=== PATIENT | female | born 1950 | race Caucasian/White ===

== ENCOUNTER 2017-11-15 09:34 | Emergency (ER) | payer MEDICARE ==
[2017-11-15 09:50] VITALS: BP 148/71
--- NOTE | 2017-11-15 17:22 | UC ---
Dickson Keating Stephanie, scribed for Jv Fenton MD on 11/15/17 at 1016 . Throat Pain/Nasal Demarco HPI - HPI Summary HPI Summary: The pt is a 67 y/o F presenting to with c/o sinus congestion that began in September 2017. Symptoms include green nasal discharge and WALLACE. The pt has taken OTC medications such as Claritin and Mucinex with no improvement. - History of Current Complaint Chief Complaint: UCRespiratory Stated Complaint: SINUS CONGESTION Time Seen by Provider: 11/15/17 10:00 Hx Obtained From: Patient ?: No Onset/Duration: Gradual Onset, Lasting Weeks - 7, Still Present Pain Intensity: 0 Pain Scale Used: 0-10 Numeric Associated Signs & Symptoms: Positive: Nasal Discharge - Allergies/Home Medications Allergies/Adverse Reactions: Allergies Allergy/AdvReac Type Severity Reaction Status Date / Time ciprofloxacin Allergy Nausea Verified 11/15/17 09:51 Penicillins Allergy Nausea Verified 11/15/17 09:51 sulfamethoxazole Allergy Nausea Verified 11/15/17 09:51 [From Bactrim] trimethoprim [From Bactrim] Allergy Nausea Verified 11/15/17 09:51 latex Allergy Hives Uncoded 05/03/15 08:34 PMH/Surg Hx/FS Hx/Imm Hx Previously Healthy: Yes - The pt denies past medical hx. - Surgical History Surgical History: Yes Surgery Procedure, Year, and Place: Hysterectomy - Family History Known Family History: Positive: Diabetes - Social History Occupation: Employed Full-time Lives: With Family Alcohol Use: None Substance Use Type: None Smoking Status (MU): Never Smoked Tobacco Have You Smoked in the Last Year: No Review of Systems Constitutional: Negative Skin: Negative Eyes: Negative ENT: Nasal Discharge, Sinus Congestion Respiratory: Negative Cardiovascular: Negative Gastrointestinal: Negative Genitourinary: Negative Motor: Negative Neurovascular: Negative Musculoskeletal: Negative Neurological: Headache Psychological: Negative Is Patient Immunocompromised?: No All Other Systems Reviewed And Are Negative: Yes Physical Exam - Summary Physical Exam Summary: VITAL SIGNS: Reviewed. GENERAL: Patient is a well developed and nourished F who is lying comfortable in the stretcher. Patient is not in any acute respiratory distress. HEAD AND FACE: Normocephalic, post-nasal drip with yellow discharge EYES: PERRLA, EOMI x 2. EARS: Hearing grossly intact. MOUTH: Oropharynx within normal limits. NECK: Supple, trachea is midline, no adenopathy, no JVD, no carotid bruit. CHEST: Symmetric, no tenderness at palpation LUNGS: Clear to auscultation bilaterally. No wheezing or crackles. CVS: Regular rate and rhythm, S1 and S2 present, no murmurs or gallops appreciated. ABDOMEN: Soft, non-tender. Bowel sounds are normal. No abdominal abnormal pulsations. EXTREMITIES: Full ROM in all major joints, no edema, no cyanosis or clubbing. NEURO: Alert and oriented x 3. No acute neurological deficits. Speech is normal and follows commands. SKIN: Dry and warm Triage Information Reviewed: Yes Vital Signs: Initial Vital Signs Temp 98 F 11/15/17 09:47 Pulse 96 11/15/17 09:47 Resp 14 11/15/17 09:47 BP 148/71 11/15/17 09:47 Pulse Ox 100 11/15/17 09:47 Vital Signs Reviewed: Yes Throat Pain/Nasal Course/Dx - Course Course Of Treatment: The pt is a 67 y/o F presenting to with c/o sinus congestion that began in September 2017. Symptoms include green nasal discharge and WALLACE. The pt has taken OTC medications such as Claritin and Mucinex with no improvement. The pt is hemodynamically stable, alert and oriented x3. Patient was instructed to return to the urgent care or go to ER immediately if any of the symptoms return or worsens. Plan of care was discussed with the patient, and patient understands and agrees. All questions were answered to patient satisfaction. There were no further complaints or concerns.The patient was found to have increased BP in . The patient will follow up with PCP for better control of BP. - Differential Dx/Diagnosis Differential Diagnosis/HQI/PQRI: Laryngitis, Tonsillitis, URI Provider Diagnoses: acute sinusitis. elevated BP without dx of HTN Discharge - Sign-Out/Discharge Documenting (check all that apply): Discharge - Discharge Plan Condition: Stable Disposition: HOME Prescriptions: Azithromyxin DOMINIC (NF) [Z-Dominic (Zithromax) 250 mg tabs #6] 2 tab PO .TODAY, THEN 1 DAILY #6 tab Patient Education Materials: Sinusitis (ED) Referrals: Marilyn Johnson NP [Primary Care Provider] - Additional Instructions: FOLLOW UP WITH YOUR PRIMARY CARE PROVIDER WITHIN ONE WEEK FOR HIGH BLOOD PRESSURE NOTED TODAY. RETURN TO URGENT CARE FOR ANY WORSENING OR NEW SYMPTOMS. - Billing Disposition and Condition Condition: STABLE Disposition: HOME The documentation as recorded by the Dickson solano Stephanie accurately reflects the service I personally performed and the decisions made by me, Jv Fenton MD.
== END 2017-11-15 10:16 | disposition home or self-care (01) ==
LOC: UCEAST 09:34
DX: J01.90 Acute sinusitis, unspecified (principal); R03.0 Elevated blood-pressure reading, without diagnosis of hypertension; Z88.1 Allergy status to other antibiotic agents; Z88.0 Allergy status to penicillin; Z88.2 Allergy status to sulfonamides
CPT/HCPCS: 99212; G0463

== ENCOUNTER 2017-11-21 18:14 | Emergency (ER) | payer MEDICARE ==
[2017-11-21 18:28] VITALS: BP 139/73
--- NOTE | 2017-11-21 18:53 | UC ---
Ear Complaint HPI - HPI Summary HPI Summary: Finished Zithromax yesterday for a sinus infection. Here today complaining of earaches saying he feels like his fluid in her ears - History of Current Complaint Chief Complaint: UCEar Stated Complaint: EAR ACHE Time Seen by Provider: 11/21/17 18:44 Hx Obtained From: Patient ?: No Onset/Duration: Sudden Onset, Lasting Days - 1 Severity Initially: Mild Severity Currently: Mild Pain Intensity: 3 Pain Scale Used: 0-10 Numeric - Allergies/Home Medications Allergies/Adverse Reactions: Allergies Allergy/AdvReac Type Severity Reaction Status Date / Time ciprofloxacin Allergy Nausea Verified 11/21/17 18:22 Penicillins Allergy Nausea Verified 11/21/17 18:22 sulfamethoxazole Allergy Nausea Verified 11/21/17 18:22 [From Bactrim] trimethoprim [From Bactrim] Allergy Nausea Verified 11/21/17 18:22 latex Allergy Hives Uncoded 11/21/17 18:22 PMH/Surg Hx/FS Hx/Imm Hx Previously Healthy: Yes - Surgical History Surgical History: Yes Surgery Procedure, Year, and Place: Hysterectomy - Family History Known Family History: Positive: None, Diabetes - Social History Occupation: Employed Full-time Lives: With Family Alcohol Use: None Substance Use Type: None Smoking Status (MU): Never Smoked Tobacco Have You Smoked in the Last Year: No Review of Systems Constitutional: Negative Skin: Negative Eyes: Negative ENT: Ear Ache - Right worse than left Respiratory: Negative Cardiovascular: Negative Gastrointestinal: Negative Genitourinary: Negative Motor: Negative Neurovascular: Negative Musculoskeletal: Negative Neurological: Negative Psychological: Negative Is Patient Immunocompromised?: No All Other Systems Reviewed And Are Negative: Yes Physical Exam Triage Information Reviewed: Yes Appearance: Well-Appearing, No Pain Distress, Well-Nourished Vital Signs: Initial Vital Signs Temp 96.3 F 11/21/17 18:24 Pulse 86 11/21/17 18:24 Resp 20 11/21/17 18:24 BP 139/73 11/21/17 18:24 Pulse Ox 100 11/21/17 18:24 Vital Signs Reviewed: Yes Eye Exam: Normal Eyes: Positive: Conjunctiva Clear ENT Exam: Normal ENT: Positive: Normal ENT inspection, Hearing grossly normal, Pharynx normal, TMs normal, Uvula midline. Negative: Nasal congestion, Nasal drainage, Tonsillar swelling, Tonsillar exudate, Trismus, Muffled voice, Hoarse voice, Sinus tenderness Dental Exam: Normal Neck exam: Normal Neck: Positive: Supple, Nontender, No Lymphadenopathy Respiratory Exam: Normal Respiratory: Positive: Chest non-tender, Lungs clear, Normal breath sounds, No respiratory distress, No accessory muscle use Cardiovascular Exam: Normal Cardiovascular: Positive: RRR, No Murmur, Pulses Normal, Brisk Capillary Refill Musculoskeletal Exam: Normal Musculoskeletal: Positive: Strength Intact, ROM Intact, No Edema Neurological Exam: Normal Neurological: Positive: Alert, Muscle Tone Normal Psychological Exam: Normal Skin Exam: Normal Ear Complaint Course/Dx - Course Course Of Treatment: Mucinex D, Tylenol or ibuprofen, follow with primary care doctor as needed - Differential Dx/Diagnosis Provider Diagnoses: Resolving sinus and nasal congestion Discharge - Sign-Out/Discharge Documenting (check all that apply): Discharge - ELAINE - Discharge Plan Condition: Stable Disposition: HOME Patient Education Materials: Decongestant/Expectorant (By mouth), Earache (ED) Referrals: Marilyn Johnson NP [Primary Care Provider] - If Needed - Billing Disposition and Condition Condition: STABLE Disposition: HOME
== END 2017-11-21 19:05 | disposition home or self-care (01) ==
LOC: UCEAST 18:14
DX: R09.81 Nasal congestion (principal); Z88.0 Allergy status to penicillin; Z88.2 Allergy status to sulfonamides; Z88.1 Allergy status to other antibiotic agents; Z91.040 Latex allergy status
CPT/HCPCS: 99211; G0463

== ENCOUNTER 2019-05-18 07:44 | Emergency (ER) | payer MEDICARE ==
[2019-05-18 08:01] VITALS: BP 123/62
--- NOTE | 2019-05-18 09:00 | UC ---
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 HAS PAIN, BRUISING AND A LITTLE SWELLING. - History of Current Complaint Chief Complaint: UCLowerExtremity Stated Complaint: TOE INJURY Time Seen by Provider: 05/18/19 08:05 Hx Obtained From: Patient, Family/Molding Associate - Onset/Duration: Sudden Onset, Still Present Severity Initially: Moderate Severity Currently: Moderate Pain Intensity: 5 Pain Scale Used: 0-10 Numeric Aggravating Factor(s): Standing, Ambulation Alleviating Factor(s): Rest, Elevation Able to Bear Weight: Yes - Allergies/Home Medications Allergies/Adverse Reactions: Allergies Allergy/AdvReac Type Severity Reaction Status Date / Time ciprofloxacin Allergy Abdominal Verified 05/18/19 07:51 Pain Penicillins Allergy Hives Verified 05/18/19 07:51 sulfamethoxazole Allergy Hives Verified 05/18/19 07:51 [From Bactrim] trimethoprim [From Bactrim] Allergy Hives Verified 05/18/19 07:51 latex Allergy Hives Uncoded 05/18/19 07:51 PMH/Surg Hx/FS Hx/Imm Hx Previously Healthy: Yes - Surgical History Surgical History: Yes Surgery Procedure, Year, and Place: Hysterectomy - Family History Known Family History: Positive: Diabetes Negative: Cardiac Disease, Hypertension - Social History Alcohol Use: None Substance Use Type: None Smoking Status (MU): Never Smoked Tobacco Have You Smoked in the Last Year: No Review of Systems All Other Systems Reviewed And Are Negative: Yes Constitutional: Positive: Negative Skin: Positive: Bruising Respiratory: Positive: Negative Cardiovascular: Positive: Negative Gastrointestinal: Positive: Negative Musculoskeletal: Positive: Arthralgia, Decreased ROM, Edema Physical Exam Triage Information Reviewed: Yes Appearance: Well-Appearing, No Pain Distress, Well-Nourished Vital Signs: Initial Vital Signs Temp 98.3 F 05/18/19 07:53 Pulse 90 05/18/19 07:53 Resp 18 05/18/19 07:53 BP 123/62 05/18/19 07:53 Pulse Ox 99 05/18/19 07:53 Vital Signs Reviewed: Yes Eyes: Positive: Conjunctiva Clear ENT: Positive: Hearing grossly normal Neck: Positive: Supple Respiratory: Positive: No respiratory distress, No accessory muscle use Cardiovascular: Positive: Pulses Normal Abdomen Description: Positive: Soft Musculoskeletal: Positive: ROM Limited @ - LEFT 5TH TOE, Edema @ - LEFT 5TH TOE , Other: - TTP LEFT 5TH TOE Neurological: Positive: Alert Psychological: Positive: Age Appropriate Behavior Skin: Positive: Other - BRUISING JUST PROXIMAL TO LEFT 5TH TOE. Negative: Rashes Diagnostics - Radiology LEFT 5TH TOE XRAYS Radiology Interpretation Completed By: Radiologist Summary of Radiographic Findings: Nondisplaced fracture of the of the left fifth distal phalanx. Lower Extremity Course/Dx - Course Course Of Treatment: X-RAYS SHOW NONDISPLACED FRACTURE OF THE LEFT FIFTH DISTAL PHALANX. POST OP SHOE APPLIED BY RN. OTC MEDS FOR DISCOMFORT. FOLLOW-UP ORTHO. - Differential Dx/Diagnosis Provider Diagnosis: Nondisplaced fracture of distal phalanx of lesser toe of left foot Discharge ED - Sign-Out/Discharge Documenting (check all that apply): Patient Departure All imaging exams completed and their final reports reviewed: Yes - Discharge Plan Condition: Stable Disposition: HOME Patient Education Materials: Toe Fracture (ED) Referrals: Amy Segura MD [Medical Doctor] - 1 Week Marilyn Johnson NP [Primary Care Provider] - If Needed Additional Instructions: X-RAY TODAY SHOWS NONDISPLACED FRACTURE OF THE OF THE LEFT FIFTH DISTAL PHALANX. WEAR THE POSTOP SHOW FOR COMFORT AND TO HELP WITH MOBILITY. REST, ICE , ELEVATE. OTC MEDS NEEDED FOR PAIN. FOLLOW-UP WITH ORTHO IN THE NEXT WEEK OR SO. - Billing Disposition and Condition Condition: STABLE Disposition: Home
== END 2019-05-18 09:20 | disposition home or self-care (01) ==
LOC: UCEAST 07:44
DX: S92.535A Nondisplaced fracture of distal phalanx of left lesser toe(s), initial encounter for closed fracture (principal); Z88.0 Allergy status to penicillin; Z88.2 Allergy status to sulfonamides; Z88.1 Allergy status to other antibiotic agents; Z91.040 Latex allergy status; W20.8XXA Other cause of strike by thrown, projected or falling object, initial encounter; Y92.9 Unspecified place or not applicable
CPT/HCPCS: 99212; G0463

== ENCOUNTER 2019-09-22 06:24 | Day surgery (SDC) | payer MEDICARE ==
[~2019-09-22 06:24] MED LIST: Acetaminophen TAB* 325 MG PO PRN; Buffered Lidocaine 1% SYRIN* 1 ML/SYRINGE INTRADERM ONE
[2019-09-22] MEDS ORDERED: Midazolam* 1 MG/ML 2 ML VIAL (2 MG) ONE (07:22)
[2019-09-22 08:25] VITALS: BP 112/57
[2019-09-22] MEDS ORDERED: Phenylephrine OPHTH SOL 2.5%* 2 ML ONE (09:23)
[2019-09-22] MEDS ORDERED: Ketorolac 0.5% OPHTH (NF) 0.5 % 5 ML BTL ONE (09:23)
[2019-09-22] MEDS ORDERED: Neomycin/Polymy/Dex OPTH.SUSP* MAXITROL 0.1% 5 ML ONE (09:23)
[2019-09-22] MEDS ORDERED: Povidone Iodine 5% OPTH* 30 ML BTL ONE (09:23)
[2019-09-22] MEDS ORDERED: Cyclopentolate 1% OPTH.SOL* 2 ML BTL ONE (09:23)
[2019-09-22] MEDS ORDERED: Proparacaine 0.5% OPHTH.SOL* 15 ML BTL ONE (09:23)
[2019-09-22] MEDS ORDERED: Lidocaine 1% MPF ** 5 ML VIAL ONE (09:23)
[2019-09-22] MEDS ORDERED: Lidocaine 2% w/ EPI 1:200,000* 20 ML SDV VIAL ONE (09:23)
--- NOTE | 2019-09-22 11:25 | OP ---
OPERATIVE NOTE: DATE OF OPERATION: 09/22/19 DATE OF : 46 SURGEON: Jeffy Márquez M.D. PREOPERATIVE DIAGNOSIS: Cataract, right eye. POSTOPERATIVE DIAGNOSIS: Cataract, right eye. OPERATIVE PROCEDURE: Extracapsular cataract extraction with intraocular lens implant, right eye. PROCEDURE: The patient was brought to the operating room after being given 1/2% Alcaine with epineph rine drops in the preoperative area. The eye was prepped and draped in the usual sterile fashion. S terile drape and eyelid speculum were placed. Again, topical 1/2% Alcaine with epinephrine was given . A paracentesis incision was made at the 9 o'clock position with the No.75 blade. Clear cornea inc ision 2.2 x 2.2-mm was created at the 12 o'clock position starting at the anterior limbus using the 2 .2-mm keratome. The anterior chamber was irrigated with 0.4 mL of 1% non-preservative intracameral l idocaine and filled with DisCoVisc. A capsulorrhexis was completed using the cystotome and the Utrat a forceps. Hydrodissection was performed with balanced salt solution. The lens nucleus was removed w ith the Phacoemulsification handpiece without incident. Cortex was removed with the irrigation-aspir ation handpiece. The capsular bag was re-inflated using DisCoVisc and an [id number] implant was insert ed with the shooter. The irrigation-aspiration handpiece was used to remove all residual DisCoVisc. The eye was refilled with balanced salt solution and the wound checked and found to be watertight. Topical Maxitrol drops were given. [id number]/[facility] #: [id number]
== END 2019-09-22 08:09 | disposition home or self-care (01) ==
LOC: OREAST 06:24
PROVIDERS: ATTEND Specialist
DX: H25.811 Combined forms of age-related cataract, right eye (principal); H43.813 Vitreous degeneration, bilateral; H44.23 Degenerative myopia, bilateral; F41.9 Anxiety disorder, unspecified; Z88.0 Allergy status to penicillin; Z88.2 Allergy status to sulfonamides; Z88.1 Allergy status to other antibiotic agents; Z91.040 Latex allergy status; Z87.440 Personal history of urinary (tract) infections
CPT/HCPCS: A9270-GY; J2250; V2632

== ENCOUNTER 2019-09-29 06:29 | Day surgery (SDC) | payer MEDICARE ==
[2019-09-29] MEDS ORDERED: fentaNYL* 50 MCG/ML 2 ML VIAL (100 MCG VIAL) ONE (06:51)
[2019-09-29] MEDS ORDERED: Midazolam* 1 MG/ML 2 ML VIAL (2 MG) ONE (06:51)
[2019-09-29] MEDS ORDERED: Propofol* 10 MG/ML 20 ML BTL ONE (07:29)
[2019-09-29 08:20] VITALS: BP 109/68
[2019-09-29] MEDS ORDERED: Cyclopentolate 1% OPTH.SOL* 2 ML BTL ONE (09:28)
[2019-09-29] MEDS ORDERED: Lidocaine 2% w/ EPI 1:200,000* 20 ML SDV VIAL ONE (09:29)
[2019-09-29] MEDS ORDERED: Ketorolac 0.5% OPHTH (NF) 0.5 % 5 ML BTL ONE (09:29)
[2019-09-29] MEDS ORDERED: Neomycin/Polymy/Dex OPTH.SUSP* MAXITROL 0.1% 5 ML ONE (09:29)
[2019-09-29] MEDS ORDERED: Lidocaine 1% MPF ** 5 ML VIAL ONE (09:29)
[2019-09-29] MEDS ORDERED: Povidone Iodine 5% OPTH* 30 ML BTL ONE (09:29)
[2019-09-29] MEDS ORDERED: Proparacaine 0.5% OPHTH.SOL* 15 ML BTL ONE (09:29)
[2019-09-29] MEDS ORDERED: Phenylephrine OPHTH SOL 2.5%* 2 ML ONE (09:29)
--- NOTE | 2019-09-29 17:38 | OP ---
DATE OF OPERATION: [facility] DATE OF : 46 SURGEON: Jeffy Márquez M.D. PREOPERATIVE DIAGNOSIS: Cataract, left eye. POSTOPERATIVE DIAGNOSIS: Cataract, left eye. OPERATIVE PROCEDURE: Extracapsular cataract extraction with IOL, left eye. DESCRIPTION OF PROCEDURE: The patient was brought to the operating room after being given 1/2% Alcaine with epinephrine drops in the preoperative area. The eye was prepped and draped in the usual sterile fashion. Sterile drape and eyelid speculum were placed. Again, topical 1/2% Alcaine with epinephrine was given. A paracentesis incision was made at the 3 o'clock position with the No.75 blade. Clear cornea incision 2.2 x 2.2-mm was created at the 6 o'clock position starting at the anterior limbus using the 2.2-mm keratome. The anterior chamber was irrigated with 0.4 mL of 1% non-preservative intracameral lidocaine and filled with DisCoVisc. A capsulorrhexis was completed using the cystotome and the Utrata forceps. Hydrodissection was performed with balanced salt solution. The lens nucleus was removed with the Phacoemulsification handpiece without incident. Cortex was removed with the irrigation-aspiration handpiece. The capsular bag was re-inflated using DisCoVisc and an [id number] diopter implant was inserted with a moustache fold through a 3.4 mm incision. The incision was enlarged to accommodate the lens. The lens was inserted with moustache fold using folding forceps. It is in the end of case, since it was 3.4 mm incision, a one 10-0 nylon suture was placed. The irrigation-aspiration handpiece was used to remove all residual DisCoVisc. The eye was refilled with balanced salt solution and the wound checked and found to be watertight. Topical Maxitrol drops were given. [id number]/[facility] #: [id number] [facility]ALS[facility]ie
== END 2019-09-29 08:12 | disposition home or self-care (01) ==
LOC: OREAST 06:29
PROVIDERS: ATTEND Specialist
DX: H25.812 Combined forms of age-related cataract, left eye (principal); H44.23 Degenerative myopia, bilateral; H43.813 Vitreous degeneration, bilateral; F41.9 Anxiety disorder, unspecified; K80.20 Calculus of gallbladder without cholecystitis without obstruction; Z88.0 Allergy status to penicillin; Z88.2 Allergy status to sulfonamides; Z88.1 Allergy status to other antibiotic agents; Z91.040 Latex allergy status; Z96.1 Presence of intraocular lens; Z87.440 Personal history of urinary (tract) infections
CPT/HCPCS: A9270-GY; J2250; J2704; J3010; V2632